=== PATIENT | male | born 2000 | race Caucasian/White ===

== ENCOUNTER 2024-05-16 11:30 | Emergency (ER) | payer OTHER ==
[~2024-05-16] VITALS: Ht 162.5 cm
[2024-05-16] MEDS ORDERED: Tdap Vaccine 0.5 ML SYR (Adult Vaccine) IM ONE (11:50)
[2024-05-16] MEDS ORDERED: Acetaminophen/Hydrocodone 5 MG/325 MG TABLET PO ONE (11:50)
[2024-05-16] MEDS ORDERED: Lidocaine Hydrochloride 5 ML AMP SC ONE (12:10)
[2024-05-16] MEDS ORDERED: CEPHALEXIN500 M1 PO (12:57)
== END 2024-05-16 13:43 | disposition home or self-care (01) ==
LOC: ED 11:30
DX: S91.312A Laceration without foreign body, left foot, initial encounter (principal); W45.8XXA Other foreign body or object entering through skin, initial encounter; Y93.89 Activity, other specified; Y92.89 Other specified places as the place of occurrence of the external cause; Y99.0 Civilian activity done for income or pay